=== PATIENT | male | born 1965 | race Hispanic/Latino ===

== ENCOUNTER 2021-09-25 21:48 | Emergency (ER) | payer SELFPAY ==
[~2021-09-25] VITALS: Ht 180.3 cm; Wt 77.1 kg
[2021-09-25 21:49] VITALS: BP 112/73
[2021-09-25] MEDS ORDERED: CEPHALEXIN 500 MG CAPSULE PO ONE (22:00)
[2021-09-25] MEDS ORDERED: TETANUS/DIPHTHERIA TOXOID [ADULT] 0.5 ML VIAL IM ONE (22:00)
[2021-09-25] MEDS ORDERED: ACETAMINOPHEN 500 MG TABLET PO ONE (22:00)
[2021-09-25] MEDS ORDERED: L.E.T. GEL 3ML SYG TP ONE (22:00)
[2021-09-25] MEDS ORDERED: AMOX/CLAV 875/125MG TAB PO ONE (22:30)
[2021-09-25] MEDS ORDERED: MUPI15CR12 TP (23:12)
[2021-09-25] MEDS ORDERED: IBUP-2070 PO (23:12)
[2021-09-25] MEDS ORDERED: AMOX-429 PO (23:12)
== END 2021-09-25 23:42 | disposition home or self-care (01) ==
LOC: EDH 21:48
DX: S00.81XA Abrasion of other part of head, initial encounter (principal); E11.9 Type 2 diabetes mellitus without complications; E78.00 Pure hypercholesterolemia, unspecified; I10 Essential (primary) hypertension; Z79.1 Long term (current) use of non-steroidal anti-inflammatories (NSAID); W54.0XXA Bitten by dog, initial encounter; Y93.89 Activity, other specified; Y92.89 Other specified places as the place of occurrence of the external cause; Y99.8 Other external cause status
CPT/HCPCS: 90471; 90714